=== PATIENT | female | born 1990 | race Caucasian/White ===

== ENCOUNTER 2018-11-06 15:26 | Outpatient (CLI) | payer OTHER ==
[~2018-11-06] VITALS: Ht 157.5 cm; Wt 84.3 kg
[2018-11-06 15:59] VITALS: Ht 157.5 cm; Wt 84.3 kg
[2018-11-06 16:00] VITALS: BP 125/65; PULSE 77; RESP 16
[2018-11-06] MEDS ORDERED: TERBUTALINE 1 MG/ML INJ SC ONE (16:40)
[2018-11-06] MEDS ORDERED: LACTATED RINGER'S 1,000 ML IV SCH (17:30)
[2018-11-06] MEDS ORDERED: LACTATED RINGER'S 1,000 ML IV ONE (17:30)
--- NOTE | 2018-11-06 18:46 | PN ---
Triage Information Date/Time Reason for visit: Uterine contractions Weeks of Gestation 26 weeks and 2 days /Para -1-1-4 Diabetes: none Hypertention: none Objective Vital Signs Date Temp Pulse Resp B/P (MAP) Pulse Ox O2 O2 Flow FiO2 Time Delivery Rate 11/06/18 98.7 77 16 125/65 Room Air 16:00 (85) Heart Rate: 140's Contractions: < 5 Minutes Apart Results/Medications Results 24 hrs Laboratory Tests Test 11/06/18 15:51 Urine Color YELLOW Urine Clarity SLIGHTLY CLOUDY A Urine pH 5.0 Urine Specific [place] 1.030 Urine Ketones NEGATIVE Urine Nitrite NEGATIVE Urine Bilirubin NEGATIVE Urine Urobilinogen NEGATIVE Urine Leukocyte Esterase NEGATIVE Urine Microscopic RBC 0 Urine Microscopic WBC 1 Urine Squamous Epithelial Cells FEW Urine Mucus FEW A Urine Hemoglobin NEGATIVE Urine Glucose NEGATIVE Urine Total Protein NEGATIVE Disposition: Discharge Assessment/Plan 28 years old with single intrauterine at 26 weeks and 2 days with a STELLA of 02/10/2019 complaining of uterine contractions. She states good movement. She denies nausea, vomiting, shortness of breath, chest pain, headache, visual changes, vaginal bleeding or LOF. She initially had contraction every 2-3 minutes. Since contraction resolved after receiving IV fluid and 1 dose of terbutaline -FHR: No sign of metabolic acidosis- Category I -She had intercourse less than 24 hours, fibronectin not collected -SVE: Closed/thick/high/intact -Ultrasound performed: Normal cervical length and BLAYNE, BPP 8 out of 8 -Symptoms and sign of labor, preeclampsia, kick count discussed with patient, she voiced understanding. All of her questions answered. -Patient was discharged home in stable condition with the appropriate discharge instructions provided. I would like patient to have close follow-up with her primary physician or outpatient clinic in 1-2 days or return to triage for worsening symptoms or any other urgent concerns. LIO FRAIRE Nov 06, 2018 18:46
== END 2018-11-06 18:42 | disposition home or self-care (01) ==
LOC: OBT 15:26 → L-D 15:27 → OBT 18:42
PROVIDERS: ATTEND Specialist
DX: O60.02 Preterm labor without delivery, second trimester (principal); Z3A.26 26 weeks gestation of pregnancy
CPT/HCPCS: 76817; 81001; 96360; J3105; J7120; Z7500; 81003; G0463

== ENCOUNTER 2018-12-11 17:51 | Outpatient (CLI) | payer OTHER ==
[~2018-12-11] VITALS: Ht 157.5 cm; Wt 88.7 kg
[~2018-12-11 17:51] MED LIST: PNV11TAB PO
[2018-12-11 18:21] VITALS: Ht 157.5 cm; Wt 88.7 kg
[2018-12-11 18:22] VITALS: BP 103/56; PULSE 105
--- NOTE | 2018-12-12 04:43 | TRIAGE ---
OB Triage Datetime Report Generated by CPN: 12/12/2018 04:42 Datetime: 12/11/2018 18:36 Stage of : OB Triage Datetime: 12/11/2018 18:28 Stage of : OB Triage Assessment Type: Triage Maternal Assessment Level of Consciousness: Keenly Alert, Responsive DTR's/Clonus: DTRs 2+; No Clonus Headache: Denies Blurred Vision: No Respiratory Effort: Unlabored; Regular Rhythm; Equal Expansion Breath Sounds, Left: Clear and Equal Breath Sounds, Right: Clear and Equal Nausea/Vomiting: Denies RUQ Epigastric Pain: Denies Facial Edema: None Temperature Route: Axillary Fall Risk Assessment History of Falling: (0) No Secondary Diagnosis: (0) No Ambulatory Aid: (0) Bedrest/Nurse Assist IV Therapy: (0) No Gait: (0) Normal/Bedrest/Immobile Mental Status: (0) Oriented to Own Ability Fall Score: 0 Fall Risk Score Definition: No Risk: No action required Labor Evaluation Frequency: 0 Monitor Mode: External Pattern: Normal: <= 5 Contractions in 10 Minutes Resting Tone Swink: Relaxed Heart Rate FHR Baseline Rate: 145 Monitor Mode: External US Variability: Moderate 6-25 bpm Accelerations: None Pain Assessment Pain Scale: 0 Pain Presence: None/Denies Pain Type: N/A Pain Goal: 3 Pain Relief Measures: Comfort Measures Datetime: 12/11/2018 18:26 Time of Arrival: 12/11/2018 17:44 EGA: 31.2 Arrived By: Ambulatory Arrived From: Dr. Pleitez Chief Complaint: referred from clinic to r/o srom, experienced a small amt of liquid this am post coital. denies bleeding or uc's Movement: Present Contractions: Denies/Absent Rupture of Membranes: Denies Vaginal Bleeding: None Vaginal Discharge: Present Recent Sexual Intercouse: Yes Abdominal Trauma: Not Applicable Patient Complaints: None Time Provider Notified: 12/11/2018 20:00 Provider Notified: Dr. Ardalan Initial Plan: monitor, rom plus, nitrazine Datetime: 11/06/2018 18:30 Maternal Assessment Level of Consciousness: Keenly Alert, Responsive Labor Evaluation Frequency: 0 Monitor Mode: External Resting Tone Swink: Relaxed Heart Rate FHR Baseline Rate: 150 Monitor Mode: External US Variability: Moderate 6-25 bpm Accelerations: 15X15 Decelerations: None Pain Assessment Pain Scale: 0 Pain Presence: None/Denies Pain Type: N/A Datetime: 11/06/2018 18:00 Maternal Assessment Level of Consciousness: Keenly Alert, Responsive Labor Evaluation Frequency: 0 Monitor Mode: External Resting Tone Swink: Relaxed Contraction Comments: PT DENIES FEELING UC'S Heart Rate FHR Baseline Rate: 150 Monitor Mode: External US Variability: Moderate 6-25 bpm Accelerations: 15X15 Decelerations: None Pain Assessment Pain Scale: 0 Pain Presence: None/Denies Pain Type: N/A Datetime: 11/06/2018 17:00 Maternal Assessment Level of Consciousness: Keenly Alert, Responsive Labor Evaluation Frequency: 2-3 Monitor Mode: External Duration (sec)2399: 40-50 Quality: Mild Pattern: Normal: <= 5 Contractions in 10 Minutes Resting Tone Swink: Relaxed Heart Rate FHR Baseline Rate: 150 Monitor Mode: External US Variability: Moderate 6-25 bpm Accelerations: 15X15 Decelerations: None Pain Assessment Pain Scale: 3 Pain Presence: Intermittent Pain Type: Cramping Pain Location: Abdomen Pain Goal: 3 Pain Relief Measures: Comfort Measures Datetime: 11/06/2018 16:14 Vaginal Exam Dilatation (cms): 0.5 Effacement (%): 30 Station: -4 Exam By: BYOBE Vaginal Bleeding: None Cervix, Consistency: Firm Cervix, Position: Posterior Datetime: 11/06/2018 16:00 Maternal Assessment Level of Consciousness: Keenly Alert, Responsive Labor Evaluation Frequency: 0 Monitor Mode: External Resting Tone [place]: Relaxed Contraction Comments: NONE VIA TOCO Heart Rate FHR Baseline Rate: 145 Monitor Mode: External US Variability: Moderate 6-25 bpm Accelerations: 15X15 Decelerations: None Category: Category I Pain Assessment Pain Scale: 3 Pain Presence: Intermittent Pain Type: Cramping Pain Location: Abdomen Pain Goal: 3 Pain Relief Measures: Comfort Measures Datetime: 11/06/2018 15:56 Stage of : OB Triage Maternal Assessment Level of Consciousness: Keenly Alert, Responsive DTR's/Clonus: DTRs 2+; No Clonus Headache: Denies Blurred Vision: No Respiratory Effort: Unlabored; Regular Rhythm; Equal Expansion Breath Sounds, Left: Clear and Equal Breath Sounds, Right: Clear and Equal Nausea/Vomiting: Denies RUQ Epigastric Pain: Denies Lower Extremities Edema: None Degree: None Upper Extremities Edema: None Degree: None Facial Edema: None Temperature Route: Axillary Fall Risk Assessment History of Falling: (0) No Secondary Diagnosis: (0) No Ambulatory Aid: (0) Bedrest/Nurse Assist IV Therapy: (0) No Gait: (0) Normal/Bedrest/Immobile Mental Status: (0) Oriented to Own Ability Fall Score: 0 Fall Risk Score Definition: No Risk: No action required Datetime: 11/06/2018 15:43 Time of Arrival: 11/06/2018 15:20 EGA: 26.2 Arrived By: Ambulatory Arrived From: Office Chief Complaint: UC's Movement: Present Contractions: Occasional Time Contractions Began: 11/05/2018 22:00 Contractions: OCCASIONAL Rupture of Membranes: Unsure Vaginal Bleeding: None Vaginal Discharge: Present Recent Sexual Intercouse: Yes Abdominal Trauma: Not Applicable Patient Complaints: Cramping Time Provider Notified: 11/06/2018 15:40 Provider Notified: Candido Initial Plan: CVL, UA, VE Datetime: 11/06/2018 15:40 Time Provider Notified: 11/06/2018 15:40
--- NOTE | 2018-12-12 06:00 | PN ---
Triage Information Date/Time Late entry note for December 11, 2018 Reason for visit: SROM Weeks of Gestation 31 weeks and 2 days /Para 5 para 4 Diabetes: none Hypertention: none Additional information 28-year-old female with IUP at 31 weeks and 2 days, and critical care with [facility] presented with complaint of leaking of some fluid after she had vaginal intercourse. She denies any vaginal bleeding, uterine contractions or decreased move ment. Denies any complication during her course. Objective Vital Signs Date Temp Pulse Resp B/P (MAP) Pulse Ox O2 O2 Flow FiO2 Time Delivery Rate 12/11/18 98.6 105 103/56 18:22 (72) Heart Rate: 130's Contractions: None Exam GA: A&O, NAD Abdomen: Soft, non tender, size consistent with dates SSE: Negative pooling, Negative Nitrazine, Negative pooling., ROM Negative NST: Cat 1 and appropriate for GA Results/Medications Results 24 hrs Laboratory Tests Test 12/11/18 18:30 Urine Color YELLOW Urine Clarity CLEAR Urine pH 5.0 Urine Specific [place] 1.030 Urine Ketones NEGATIVE Urine Nitrite NEGATIVE Urine Bilirubin NEGATIVE Urine Urobilinogen 1+ H Urine Leukocyte Esterase NEGATIVE Urine Hemoglobin NEGATIVE Urine Glucose NEGATIVE Urine Total Protein NEGATIVE Membranes Rupture NEGATIVE Imaging Results PROCEDURE: Obstetrical ultrasound for biophysical profile CLINICAL INDICATION: Biophysical profile. . TECHNIQUE: Obstetrical ultrasound of the uterus for biophysical pr ofile. Transabdominal views are obtained. COMPARISON: 11/06/2018 FINDINGS: Single intrauterine gestation. Presentation: Cephalic. Placenta: Fundal No evidence of placental abruption. No evidence of placenta previa. breathing movement = 2/2 tone = 2/2 motion = 2/2 BLAYNE = 2/2 BLAYNE = 11.7 cm heart rate: 132 beats per minute IMPRESSION: Single intrauterine gestation. Biophysical profile 12/19 Disposition: Discharge Assessment/Plan IUP at 31 weeks and 2 days Leaking of void after sexual intercourse. No evidence of PPROM. No evidence of labor. testing reassuring. Patient does not have any obstetrical issue at this time. Strict labor precautions PPROM precaution and follow-up with her primary OB at her next appointment next week discussed with patient. Return to triage as needed any other complaint including leaking of fluid,Vaginal bleeding or decreased movement or for any other complaint Patient verbalized understanding. All questions were answered to patient's best satisfaction. ERLIN JIN MD Dec 12, 2018 06:00
== END 2018-12-11 22:00 | disposition home or self-care (01) ==
LOC: OBT 17:51 → L-D 17:52 → OBT 22:00
PROVIDERS: ATTEND Specialist
DX: O42.913 Preterm premature rupture of membranes, unspecified as to length of time between rupture and onset of labor, third trimester (principal); Z3A.31 31 weeks gestation of pregnancy
CPT/HCPCS: 76818; 81003; 84112; 87086; Z7500; G0463

== ENCOUNTER 2019-01-06 11:04 | Inpatient (IN) | payer OTHER ==
[~2019-01-06] VITALS: Ht 157.5 cm; Wt 89.7 kg
[2019-01-06 11:33] VITALS: BP 101/55; PULSE 90; Ht 157.5 cm; Wt 89.7 kg
[2019-01-06] MEDS: LACTATED RINGER'S 1,000 ML IV SCH ×2 (12:24→14:17)
[2019-01-06] MEDS ORDERED: morphine 4 MG/ML VIAL IV PRN (12:30)
[2019-01-06] MEDS ORDERED: AMPICILLIN 2 GM/NS (PMX) 100 ML IV ONE (12:30)
[2019-01-06] MEDS ORDERED: MISOPROSTOL 200 MCG TAB PR PRN (12:30)
[2019-01-06] MEDS ORDERED: OXYTOCIN 30 UNITS/LR 500 ML IV SCH ×2 (12:30)
[2019-01-06] MEDS ORDERED: LIDOCAINE 1% (MPF) 30 ML INJ INJ PRN (12:30)
[2019-01-06] MEDS ORDERED: OXYTOCIN 30 UNITS/LR 500 ML IV PRN (12:30)
[2019-01-06] MEDS ORDERED: METHYLERGONOVINE 0.2 MG INJ IM PRN (12:30)
[2019-01-06] MEDS ORDERED: CARBOPROST 250 MCG INJ IM PRN (12:30)
[2019-01-06] MEDS: BETAMET NA PHOS/AC(6 MG/ML) 2 ML INJ SYG IM SCH (13:50)
[2019-01-06] MEDS: AMPICILLIN 1 GM/NS (PMX) 50 ML IV SCH ×2 (17:56→22:20)
[2019-01-07] MEDS: AMPICILLIN 1 GM/NS (PMX) 50 ML IV SCH ×3 (02:31→11:14)
[2019-01-07] MEDS: BETAMET NA PHOS/AC(6 MG/ML) 2 ML INJ SYG IM SCH (13:32)
[2019-01-09] MEDS ORDERED: PROPOFOL 20 ML ONE (15:55)
[2019-01-09] MEDS ORDERED: CEFAZOLIN 1 GM INJ ONE (15:55)
[2019-01-09] MEDS ORDERED: ROCURONIUM 50 MG INJ ONE (15:55)
[2019-01-09] MEDS ORDERED: GLYCOPYRROLATE 0.4 MG INJ ONE (15:55)
[2019-01-09] MEDS ORDERED: NEOSTIGMINE 3 MG/3 ML SYRINGE ONE (15:55)
[2019-01-09] MEDS ORDERED: FENTAnyl 50 MCG/ML VIAL ONE (15:58)
[2019-01-09] MEDS ORDERED: DEXAMETHASONE 4 MG/ML 5 ML INJ ONE (15:58)
[2019-01-09] MEDS ORDERED: ONDANSETRON 4 MG INJ ONE (15:58)
[2019-01-09] MEDS ORDERED: MIDAZOLAM 1 MG/ML 2 ML INJ ONE (15:58)
== END 2019-01-07 14:30 | disposition home or self-care (01) | DRG 833 ==
LOC: OBT 11:04 → L-D 11:05 → OBT 11:50 → L-D 13:33
PROVIDERS: ADMIT Specialist; ATTEND Specialist
DX: O47.03 False labor before 37 completed weeks of gestation, third trimester (principal); Z3A.35 35 weeks gestation of pregnancy
CPT/HCPCS: 76815; 81001; 85025; 85610; 85730; 86592; 86850; 86900; 86901; 87081; 87086; G0463; J0290; J0702; J7120

== ENCOUNTER 2019-01-20 01:59 | Inpatient (IN) | payer OTHER ==
[~2019-01-20] VITALS: Ht 157.5 cm; Wt 90.8 kg
[2019-01-20 02:08] VITALS: BP 120/67; PULSE 88; RESP 19; Ht 157.5 cm; Wt 90.8 kg
[2019-01-20] MEDS ORDERED: METHYLERGONOVINE 0.2 MG INJ IM PRN (02:30)
[2019-01-20] MEDS ORDERED: OXYTOCIN 30 UNITS/LR 500 ML IV SCH ×2 (02:30→08:00)
[2019-01-20] MEDS ORDERED: OXYCODONE/ASPIRIN (4.88/325) TAB PO PRN (02:30)
[2019-01-20] MEDS ORDERED: OXYTOCIN 30 UNITS/LR 500 ML IV PRN ×2 (02:30→20:30)
[2019-01-20] MEDS ORDERED: CARBOPROST 250 MCG INJ IM PRN ×2 (02:30→20:30)
[2019-01-20] MEDS ORDERED: FENTAnyl 50 MCG/ML VIAL IV PRN (02:30)
[2019-01-20] MEDS ORDERED: LIDOCAINE 1% (MPF) 30 ML INJ INJ PRN (02:30)
[2019-01-20] MEDS ORDERED: MISOPROSTOL 200 MCG TAB PR PRN ×2 (02:30→20:30)
[2019-01-20] MEDS ORDERED: IBUPROFEN 600 MG TAB PO PRN (02:30)
[2019-01-20] MEDS ORDERED: BUTORPHANOL 2 MG INJ IV PRN (02:30)
[2019-01-20] MEDS ORDERED: AMPICILLIN 2 GM/NS (PMX) 100 ML IV ONE (02:30)
[2019-01-20] MEDS ORDERED: DIPHENHYDRAMINE 50 MG INJ IV PRN ×2 (03:30→20:30)
[2019-01-20] MEDS ORDERED: NALOXONE (0.4 MG/ML) INJ IV PRN (03:30)
[2019-01-20] MEDS ORDERED: ONDANSETRON 4 MG INJ IV PRN ×2 (03:30→20:30)
[2019-01-20] MEDS: LACTATED RINGER'S 1,000 ML IV SCH ×3 (03:55→18:22)
[2019-01-20] MEDS: AMPICILLIN 1 GM/NS (PMX) 50 ML IV SCH ×5 (09:10→22:30)
[2019-01-20] MEDS: FENTAnyl 2MCG/ML-ROPIV 0.2% 100 ML BAG EPI SCH ×2 (10:09→18:08)
[2019-01-20] MEDS ORDERED: LACTATED RINGER'S 1,000 ML IV* SCH (20:12)
[2019-01-20] MEDS ORDERED: SENNA/DOCUSATE NA (8.6MG/50MG) TAB PO PRN (20:30)
[2019-01-20] MEDS ORDERED: MAGNESIUM HYDROXIDE 30ML CUP PO PRN (20:30)
[2019-01-20] MEDS ORDERED: ONDANSETRON 4 MG TAB PO PRN (20:30)
[2019-01-20] MEDS ORDERED: WITCH HAZEL/GLYCERIN PAD PR PRN (20:30)
[2019-01-20] MEDS ORDERED: NA PHOSPHATE/BIPHOS 133 ML ENEMA PR PRN (20:30)
[2019-01-20] MEDS ORDERED: LANOLIN HPA 1 PKT TOP PRN (20:30)
[2019-01-20] MEDS ORDERED: BENZOCAINE 20% 56 ML SPRAY TOP PRN (20:30)
[2019-01-20] MEDS ORDERED: HYDROCODONE/APAP (5/325) TAB PO PRN ×2 (20:30)
[2019-01-20] MEDS ORDERED: DIPHENHYDRAMINE 25 MG CAP PO PRN (20:30)
[2019-01-20] MEDS ORDERED: DIBUCAINE 1% 30 GM OINT TOP PRN (20:30)
[2019-01-20] MEDS: OXYTOCIN 30 UNITS/LR 500 ML IV SCH ×2 (20:54→20:58)
[2019-01-20] MEDS: SENNA/DOCUSATE NA (8.6MG/50MG) TAB PO SCH (21:00)
[2019-01-20 22:20] VITALS: BP 115/58; PULSE 84; RESP 18
[2019-01-21] MEDS: IBUPROFEN 600 MG TAB PO SCH ×4 (00:03→17:37)
[2019-01-21 00:05] VITALS: BP 112/60; PULSE 88; RESP 18
[2019-01-21 03:50] VITALS: BP 115/58; PULSE 84; RESP 18
[2019-01-21 08:30] VITALS: BP 101/59; PULSE 70; RESP 18
[2019-01-21] MEDS: SENNA/DOCUSATE NA (8.6MG/50MG) TAB PO SCH ×2 (09:51→21:44)
[2019-01-21 12:00] VITALS: BP 100/59; PULSE 91; RESP 18
[2019-01-21 16:37] VITALS: BP 100/57; PULSE 85; RESP 18
[2019-01-21 20:15] VITALS: BP 109/69; PULSE 81; RESP 17
[2019-01-22] MEDS: IBUPROFEN 600 MG TAB PO SCH ×3 (00:04→12:00)
[2019-01-22 04:40] VITALS: BP 110/63; PULSE 85; RESP 18
[2019-01-22 08:30] VITALS: BP 109/69; PULSE 69; RESP 18
[2019-01-22] MEDS ORDERED: VARICELLA VACCINE LIVE/PF 1,350 UNIT/0.5 ML ML SC* ONE (09:00)
[2019-01-22] MEDS: SENNA/DOCUSATE NA (8.6MG/50MG) TAB PO SCH (09:00)
[2019-01-22] MEDS ORDERED: MEASLES,MUMPS,RUBELLA VACCINE INJ SC* ONE (09:00)
[2019-01-22] MEDS ORDERED: DIPHTH/TET/ACEL PERTUSS (ADULT) 0.5 ML VIAL IM* ONE (09:00)
== END 2019-01-22 12:45 | disposition home or self-care (01) | DRG 807 ==
LOC: OBT 01:59 → L-D 01:59 → OBT 02:22 → PP1 22:18
PROVIDERS: ADMIT Specialist; ATTEND Specialist
PROC: 10E0XZZ Delivery of Products of Conception, External Approach (ICD-10-PCS; principal; 2019-01-20)
PROC: 4A1HXCZ Monitoring of Products of Conception, Cardiac Rate, External Approach (ICD-10-PCS; 2019-01-20)
PROC: 4A033R1 Measurement of Arterial Saturation, Peripheral, Percutaneous Approach (ICD-10-PCS; 2019-01-20)
DX: O80 Encounter for full-term uncomplicated delivery (principal); Z37.0 Single live birth; Z3A.37 37 weeks gestation of pregnancy
CPT/HCPCS: 36415; 36600; 62322; 82803; 85025; 85610; 85730; 86592; 86850; 86900; 86901; 87340; 90716; 99464; G0463; J0290; J2590; J3010; J7120